=== PATIENT | male | born 1970 ===

== ENCOUNTER 2025-08-24 13:25 | Emergency (ER) | payer MEDICARE, MEDICAID, SELFPAY ==
--- NOTE | 2025-08-24 | ECG_ITS ---
Test Reason : TACHY Blood Pressure : */* mmHG Vent. Rate : 111 BPM Atrial Rate : 111 BPM P-R Int : 136 ms QRS Dur : 80 ms QT Int : 334 ms P-R-T Axes : 79 67 65 degrees QTcB Int : 454 ms Sinus tachycardia Possible Left atrial enlargement Borderline ECG When compared with ECG of 24-Aug-2025 13:30, No significant change was found Referred By: Adiel Stenier Electronically Signed By: PEPE EDEN
--- NOTE | 2025-08-24 | ECG_ITS ---
Test Reason : CP Blood Pressure : */* mmHG Vent. Rate : 113 BPM Atrial Rate : 113 BPM P-R Int : 140 ms QRS Dur : 78 ms QT Int : 338 ms P-R-T Axes : 82 56 50 degrees QTcB Int : 463 ms Sinus tachycardia Possible Left atrial enlargement Borderline ECG No previous ECGs available Referred By: Generic ED Physician Electronically Signed By: PEPE EDEN
--- NOTE | ~2025-08-24 | XR_ITS ---
EXAMINATION: XR CHEST CLINICAL INFORMATION: Chest pain. COMPARISON: None available. TECHNIQUE: PA view of the chest was obtained. FINDINGS: The cardiac, hilar, and mediastinal contours are normal. The lungs are clear bilaterally. No pneumothorax or effusion. No focal osseous or soft tissue abnormality. XR/XR chest 1V IMPRESSION: Normal chest. Electronically signed by: David Carlson MD 08/24/2025 02:21 PM EDT
--- NOTE | ~2025-08-24 | CT_ITS ---
EXAMINATION: CT HEAD WITHOUT CONTRAST CLINICAL INFORMATION: headache COMPARISON: None available. TECHNIQUE: Contiguous axial imaging was performed from the skull base to vertex without intravenous administration of contrast. This CT examination was performed using dose optimization techniques as appropriate, variously including the following: *Automated exposure control *Adjustment of mA and/or kV according to patient size (this includes techniques or standardized protocols for targeted exams where dose is matched to indication/reason for exam; i.e. extremities or head) *Use of iterative reconstruction technique DLP: 683 mGy-cm FINDINGS: No acute intracranial hemorrhage mass effect, midline shift, hydrocephalus or herniation. Gómez-white matter differentiation is normal. Posterior cranial fossa contents demonstrated no gross hemorrhage or mass effect. Normal position of the cerebellar tonsils. Sellar/suprasellar region demonstrated no gross masses. No air-fluid levels in the paranasal sinuses. Tympanic cavities and mastoid cells are aerated. Pneumatized left petrous apex, congenital variant. CT/CT head/brain wo IV con IMPRESSION: No acute or structural brain abnormality by CT. Electronically signed by: Luis Santos MD 08/24/2025 03:27 PM EDT
--- NOTE | ~2025-08-24 | CT_ITS ---
CLINICAL HISTORY: fever CT abdomen and pelvis with contrast Comparison: None provided Findings: Mild atelectasis and motion of the imaged lung bases. Mild fat deposition of the liver. 4 mm low-density lesion in the dome of the liver is too small to characterize by imaging. Differential considerations include cysts and hemangioma in the absence of malignancy. Gallbladder is partly obscured and otherwise unremarkable. Adrenal glands and pancreas partly obscured and otherwise unremarkable in the CT with motion artifacts. Imaged CBD measures at the upper limits of normal. Multiple bilateral nephrolithiasis, left worse than right. Kidney stones measuring up to 5 mm at this time. No hydronephrosis. Small mesenteric and retroperitoneal lymph nodes are nonspecific and may be reactive. Fluid and multiple small-bowel loops is nonspecific and can be seen with enteritis. No small bowel obstruction at this time. Small appendicolith present in the imaged appendix, without findings of acute appendicitis. (imaged 36 of series 7). Severe stool burden present, including the cecum. Prostate gland measures 5.4 cm transverse. Calcified and noncalcified plaque include imaged aorta and its branches. Phleboliths noted in the pelvis. Mild wall thickening of the mildly distended urinary bladder is nonspecific by CT. Mild osseous pelvis deformities appear old/chronic. Exostosis of the left iliac wing is likely from previous trauma and/or healed fracture. Osteochondroma also considered laterally. Degenerative disc changes and facet arthropathy are multifocal including lower lumbar spine. IMPRESSION: 1. Nonobstructing bilateral nephrolithiasis. 2. Fluid in the small bowel loops nonspecific and can be seen with enteritis. No small bowel obstruction. 3. Severe stool burden. 4. Indeterminate lesion in the dome of the liver measures 4 mm. Recommend six-month follow-up to ensure stability and exclude any potential growth. 5. Deformity of the left iliac bone likely due to old healed fracture. This document has been electronically signed by: Kaveh Herrera MD on 08/25/2025 02:41:21
[2025-08-24 13:29] VITALS: BP 160/81; PULSE 108; RESP 20; TEMP 37; O2SAT 98; BMI 26.6
--- NOTE | 2025-08-24 13:39 | ED.GENADULT ---
HPI - General Adult General Chief complaint: General Medical Stated complaint: migraines, CP, L sided numbness, feels faint Time Seen by Provider: 08/24/25 17:11 Source: patient, RN notes reviewed and old records reviewed Mode of arrival: ambulatory Limitations: no limitations History of Present Illness ED Provider: Obdulia BARCENAS narrative: 54-year-old male past medical history significant for migraine headaches presents for evaluation of multiple complaints. His chief complaint today seems to be a right-sided headache. His headaches are consistent with his previous migraines with eye pressure, light sensitivity significant headache. He has been treated with sumatriptan with good relief his symptoms pain He reports his primary doctor has only been giving him short portions of sumatriptan about 9 tablets to lasting for a month and the patient currently has no sumatriptan at home Also complains of chest pain that started this morning when he woke up and some shortness of breath. He has a sore throat He has not had any fevers but does endorse some chills He reports his overall discomfort is 7/10. He has seen urology in the past and they offered him some injections for his headaches which she does not feel helped No other complaints at this time Related Data Previous Rx's ?Medication ?Instructions ?Recorded amoxicillin 875 mg-potassium 1 tab PO Q12H #14 tabs 08/25/25 clavulanate 125 mg tablet sumatriptan succinate 100 mg tablet 100 mg PO Q2-4H PRN migraine 08/25/25 headache 2 doses #20 tabs Allergies Allergy/AdvReac Type Severity Reaction Status Date / Time No Known Allergies Allergy Verified 08/24/25 13:38 Review of Systems Constitutional: Constitutional: Denies body ache(s), Denies chills, Denies fever(s), Denies frequent falls and Reports headache(s) Eyes: Eyes: Denies blurry vision and Reports photophobia ENT: Denies vertigo, Denies dizziness and Reports headache(s) Cardiovascular: Cardiovascular: Reports chest pain and Denies dyspnea on exertion Respiratory: Respiratory: Denies cough and Denies dyspnea on exertion Gastrointestinal: Gastrointestinal: Denies abdominal pain, Denies nausea and Denies vomiting Musculoskeletal: Musculoskeletal: Denies back pain Integumentary/Breasts: Skin/Breast: Denies rash Neurologic: Denies vertigo, Denies dizziness, Denies frequent falls and Reports headache(s) Psychiatric: Psychiatric: Reports anxiety Physical Exam ED Vital Signs: Vital Signs - 24 hr 08/24/25 13:29 08/24/25 17:07 08/24/25 20:12 Temperature 98.6 F 100.0 F Pulse Rate 108 H 110 H 121 H Respiratory Rate 20 18 20 Blood Pressure 160/81 H 156/91 H 145/85 H Pulse Oximetry 98 99 93 Oxygen Delivery Method Room Air Room Air Room Air 08/24/25 21:15 08/24/25 22:05 08/24/25 23:41 Temperature 103 F H 101.6 F H 100.3 F Pulse Rate 141 H 104 H Respiratory Rate 18 14 Blood Pressure 153/90 H 139/73 Pulse Oximetry 95 100 Oxygen Delivery Method Room Air Room Air 08/25/25 02:20 08/25/25 03:18 Temperature 98.4 F 98.4 F Pulse Rate 90 90 Respiratory Rate 18 18 Blood Pressure 141/84 H 141/84 H Pulse Oximetry 96 96 Oxygen Delivery Method Room Air Room Air BMI result Body Mass Index 26.6 Const General: healthy appearing, no acute distress, alert and awake Nutritional Appearance: well nourished Orientation/consciousness: patient oriented x3 HENMT Head: Yes normocephalic and Yes atraumatic Eyes Eyelids: Yes eyelids normal Conjunctivae: conjunctivae normal Sclerae: sclerae normal Corneas: corneas normal Pupils: Equal, round and reactive pupils present EOM: EOMs intact bilaterally Direct Ophthalmoscopy: photophobia Neck Neck: Yes full ROM Resp Effort & Inspection: normal respiratory effort, able to speak in complete sentences and not labored Cardio Rate: regular rate Rhythm: regular rhythm GI Inspection: No distended Palpation (GI): Soft to palpation, not firm, nontender, no guarding and not rigid Skin General skin exam: elasticity normal Neuro General: patient oriented x3 Cranial nerves: Yes CN's II-XII intact bilaterally, Yes Equal, round and reactive pupils present and Yes Bilaterally intact EOM present Cognition (Neuro): normal cognition Extrem Other: Moving all extremities well without any obvious deformities Course Course Course Narrative: RME: 54-year-old male presents to ED for left-sided chest pain tingling bilateral extremities and lightheadedness with headache. Patient has history of pneumothorax small TIAs. Presently NIH score is 0. Patient's main complaint is chest pain. Labs EKG chest x-ray ordered Reevaluation(s) Reevaluation #1: The patient had some delay in getting his sumatriptan from pharmacy. However he received a little over an hour ago. He is resting comfortably on my re-evaluation. Time: 20:48 Reevaluation #2: Patient's headache has improved and he was to be discharged but then on repeat vitals was found to have a fever of 103. I ordered blood cultures, lactic acid. Further examination does show abdominal tenderness in the right upper and lower quadrants. The patient reports he had some nausea this morning after eating and has a history of chronic pancreatic disease. He still has all of his abdominal organs. Plan for CT scan of the pelvis to evaluate for acute appendicitis or acute cholecystitis as source of infection. However I do feel that his symptoms are still likely viral as he is coughing, congested with a sore throat. He has mono negative. He has a rash in his neck this is consistent with previous episodes of eczema. He was able to flex as well as hyperextend his neck without any difficulty. He has no meningeal signs, I have a low suspicion for meningitis or encephalitis Time: 22:05 Reevaluation #3: The patient's symptoms including his headache resolved in his fever resolved. He believes that the sumatriptan helped his headache most which she has had in the past. I do suspect with his cough he still has a viral illness but his CT scan shows enteritis versus significant stool burden. I discussed treatment with him. We will prescribe Augmentin which would cover upper respiratory infection as well as colitis. We will prescribe sumatriptan for his headaches. He was given return precautions. I did discuss a possible lumbar puncture with him, I have a very low suspicion for meningitis and the patient would prefer not to have this procedure performed. I do feel it is appropriate to defer at this time as he has no neck pain, nuchal rigidity, no confusion, no white count, and a normal head CT. Time: 03:00 Medications Administered Discontinued Medications Generic Name Dose Route Start Last Admin Trade Name Enrriqueq PRN Reason Stop Dose Admin Acetaminophen 975 mg 08/24/25 21:08 08/24/25 21:46 Acetaminophen 325 Mg Tablet PO 08/24/25 21:09 975 mg ONCE ONE Administration Amoxicillin/Clavulanate Potassium 875 mg 08/25/25 03:01 08/25/25 03:13 Amoxicillin/Potassium Clav 875 Mg Tablet PO 08/25/25 03:02 875 mg ONCE ONE Administration Sodium Chloride 1,000 mls @ 999 mls/hr 08/24/25 21:15 08/24/25 23:38 Ns IV 08/24/25 22:15 Infused .Q1H1M JUDIE Infusion Ibuprofen 600 mg 08/25/25 03:01 08/25/25 03:13 Ibuprofen 600 Mg Tablet PO 08/25/25 03:02 600 mg ONCE ONE Administration Iohexol 85 ml 08/25/25 01:09 08/25/25 01:10 Iohexol 350 Mg/Ml 100 Ml Infus..Btl IV 08/25/25 01:10 85 ml ONCE ONE Administration Sumatriptan Succinate 100 mg 08/24/25 17:43 08/24/25 19:24 Sumatriptan Succinate 100 Mg Tablet PO 08/24/25 17:44 100 mg ONCE ONE Administration Sumatriptan Succinate 100 mg 08/24/25 21:54 08/24/25 22:09 Sumatriptan Succinate 100 Mg Tablet PO 08/24/25 21:55 100 mg ONCE ONE Administration Medical Decision Making Medical Decision Making [facility] Narrative: 54-year-old male presents for evaluation of a headache as well as chest pain. His symptoms worsened today. He has a history of chronic migraines in his feels similar. His neurologic exam is benign, NIH stroke score of 0. He did have a CT scan ordered in triage does not show any acute findings. The patient has a temperature of a 100.0?, he has no obvious infection but given his cough, chest x-ray was ordered which shows no pneumonia. He is negative for COVID influenza. I feel that acute sinusitis is less likely in his his symptoms just started yesterday. He has not had upper respiratory symptoms for a week. No rashes to suggest a skin infection. The patient's troponin is undetectable in his EKG is nonischemic, he rules out for ACS. I suspect he may have a viral condition in his contributing to his headache. We will treat his headache with sumatriptan and re-evaluate Differential Diagnosis Differential Diagnoses: The differential diagnosis associated with the presentation includes Viral syndrome Acute headache Tension headache Migraine headache COVID-19 Influenza Strep pharyngitis Lab Data [facility] Lab Attestation statement: I reviewed the patient's lab results. No leukocytosis or anemia. Normal platelet count. No significant electrolyte abnormalities warranting dimension. Troponin negative 08/24/25 13:55 08/24/25 13:55 Labs: Lab Results 08/24/25 08/24/25 08/24/25 Range/Units 13:55 17:14 18:00 WBC 4.8 (4.8-10.8) X10*3/uL RBC 5.15 (4.60-5.80) X10*6/uL Hgb 14.8 (14.0-18.0) g/dl Hct 42.6 (42.0-52.0) % MCV 82.7 (80.0-98.0) fL MCH 28.7 (27.0-33.0) pg MCHC 34.7 (31.0-36.0) g/dl RDW 13.2 (11.0-16.0) % Plt Count 239 (160-400) X10*3/uL MPV 9.4 (9.4-12.4) fL Immature Gran % (Auto) 0.2 (0.0-0.4) % Neut % (Auto) 51.4 (45-73) % Lymph % (Auto) 22.4 (20-40) % Yell % (Auto) 12.8 H (2-11) % Eos % (Auto) 12.4 H (0-4) % Baso % (Auto) 0.8 (0-2) % Lymph # (Auto) 1.1 L (1.2-4.9) X10*3/uL Yell # (Auto) 0.6 (0.1-1.2) X10*3/uL Eos # (Auto) 0.6 H (0.0-0.4) X10*3/uL Baso # (Auto) 0.0 (0.0-0.2) X10*3/uL Abs Immat Gran (auto) 0.01 (0.00-0.03) X10*3/uL Absolute Neuts (auto) 2.5 (2.0-8.3) x10*3/uL Absolute Nucleated RBC 0.000 (0.0-0.012) X10*3/uL Nucleated RBC % (auto) 0.0 (0.0-0.2) /100WBC PT 11.4 (10.9-12.4) SEC INR 1.0 (0.9-1.1) APTT 27.9 (26.7-34.1) SEC Sodium 139 (135-145) mmol/L Potassium 3.6 (3.3-5.1) mmol/L Chloride 108 (96-108) mmol/L Carbon Dioxide 25 (22-29) mmol/L Anion Gap 10 L (12-20) BUN 12 (9-16) mg/dL Creatinine 1.07 (0.5-1.4) mg/dL Estim Creat Clear Calc 72.0 Estimated GFR > 60 Random Glucose 92 (60-115) mg/dL Lactic Acid (0.5-2.0) mmol/L Calcium 9.2 (8.4-10.2) mg/dL Total Bilirubin 0.5 (0.0-1.0) mg/dL AST 21 (5-37) U/L ALT 14 (0-40) U/L Alkaline Phosphatase 63 (39-117) U/L Troponin I High Sens < 2.7 (<3.5-35.0) ng/L NT-Pro-B Natriuret Pep 61.6 (<300) pg/mL Total Protein 7.2 (6.5-8.0) g/dL Albumin 4.3 (3.5-5.0) g/dL Urine Color Urine Appearance Urine pH (5.0-9.0) Ur Specific [place] (1.005-1.025) Urine Protein (Neg-Trace) mg/dL Urine Glucose (UA) (Negative) mg/dL Urine Ketones (Negative) mg/dL Urine Blood (Negative) Urine Nitrite (Negative) Ur Leukocyte Esterase (Negative) Urine RBC (0-2) /HPF Urine WBC (0-5) /HPF Ur Squamous Epith Cells (0-2) /HPF Urine Bacteria (None Seen) Hyaline Casts (0-2) /LPF Respiratory Panel Moya Adenovirus (Rapid PCR) (Not Detect.) B.pert (TEM-PCR) (Not Detect.) B.parapertussis DNA PCR (Not Detect.) C. pneumoniae DNA (PCR) (Not Detect.) Coronavirus OC43 (PCR) (Not Detect.) Coronavirus HKU1 (PCR) (Not Detect.) Coronavirus 229E (PCR) (Not Detect.) COVID-19 (TREVA) Negative (Negative) COVID-19 Clin Com See Note Coronavirus NL63 (PCR) (Not Detect.) Monoscreen (Negative) Human Metapneumovir PCR (Not Detect.) Influenza Type A (GIOVANNI) Negative (Negative) Influenza A (RT-PCR) (Not Detect.) Influenza A (H1) PCR (Not Detect.) Influ A (H1/09) PCR (Not Detect.) Influenza A (H3) PCR (Not Detect.) Influenza Type B (GIOVANNI) Negative (Negative) Influenza B (RT-PCR) (Not Detect.) Influenza A & B Note See Note M. pneumoniae (PCR) (Not Detect.) Parainfluenza 1 (PCR) (Not Detect.) Parainfluenza 2 (PCR) (Not Detect.) Parainfluenza 3 (PCR) (Not Detect.) Parainfluenza 4 (PCR) (Not Detect.) RSV (PCR) (Not Detect.) Entero/Rhino (PCR) (Not Detect.) SARS-CoV-2 RNA (RT-PCR) (Not Detect.) S. pyogenes GrpA GIOVANNI Negative (Negative) 08/24/25 08/24/25 08/24/25 Range/Units 21:26 21:31 21:34 WBC (4.8-10.8) X10*3/uL RBC (4.60-5.80) X10*6/uL Hgb (14.0-18.0) g/dl Hct (42.0-52.0) % MCV (80.0-98.0) fL MCH (27.0-33.0) pg MCHC (31.0-36.0) g/dl RDW (11.0-16.0) % Plt Count (160-400) X10*3/uL MPV (9.4-12.4) fL Immature Gran % (Auto) (0.0-0.4) % Neut % (Auto) (45-73) % Lymph % (Auto) (20-40) % Yell % (Auto) (2-11) % Eos % (Auto) (0-4) % Baso % (Auto) (0-2) % Lymph # (Auto) (1.2-4.9) X10*3/uL Yell # (Auto) (0.1-1.2) X10*3/uL Eos # (Auto) (0.0-0.4) X10*3/uL Baso # (Auto) (0.0-0.2) X10*3/uL Abs Immat Gran (auto) (0.00-0.03) X10*3/uL Absolute Neuts (auto) (2.0-8.3) x10*3/uL Absolute Nucleated RBC (0.0-0.012) X10*3/uL Nucleated RBC % (auto) (0.0-0.2) /100WBC PT (10.9-12.4) SEC INR (0.9-1.1) APTT (26.7-34.1) SEC Sodium (135-145) mmol/L Potassium (3.3-5.1) mmol/L Chloride (96-108) mmol/L Carbon Dioxide (22-29) mmol/L Anion Gap (12-20) BUN (9-16) mg/dL Creatinine (0.5-1.4) mg/dL Estim Creat Clear Calc Estimated GFR Random Glucose (60-115) mg/dL Lactic Acid 1.1 (0.5-2.0) mmol/L Calcium (8.4-10.2) mg/dL Total Bilirubin (0.0-1.0) mg/dL AST (5-37) U/L ALT (0-40) U/L Alkaline Phosphatase (39-117) U/L Troponin I High Sens (<3.5-35.0) ng/L NT-Pro-B Natriuret Pep (<300) pg/mL Total Protein (6.5-8.0) g/dL Albumin (3.5-5.0) g/dL Urine Color Yellow Urine Appearance Clear Urine pH 6.0 (5.0-9.0) Ur Specific [place] 1.010 (1.005-1.025) Urine Protein Negative (Neg-Trace) mg/dL Urine Glucose (UA) Negative (Negative) mg/dL Urine Ketones Negative (Negative) mg/dL Urine Blood Trace H (Negative) Urine Nitrite Negative (Negative) Ur Leukocyte Esterase Negative (Negative) Urine RBC 0-2 (0-2) /HPF Urine WBC 0-5 (0-5) /HPF Ur Squamous Epith Cells 0-2 (0-2) /HPF Urine Bacteria None Seen (None Seen) Hyaline Casts 0-2 (0-2) /LPF Respiratory Panel Moya See Note Adenovirus (Rapid PCR) Not Detected (Not Detect.) B.pert (TEM-PCR) Not Detected (Not Detect.) B.parapertussis DNA PCR Not Detected (Not Detect.) C. pneumoniae DNA (PCR) Not Detected (Not Detect.) Coronavirus OC43 (PCR) Not Detected (Not Detect.) Coronavirus HKU1 (PCR) Not Detected (Not Detect.) Coronavirus 229E (PCR) Not Detected (Not Detect.) COVID-19 (TREVA) (Negative) COVID-19 Clin Com Coronavirus NL63 (PCR) Not Detected (Not Detect.) Monoscreen Negative (Negative) Human Metapneumovir PCR Not Detected (Not Detect.) Influenza Type A (GIOVANNI) (Negative) Influenza A (RT-PCR) Not Detected (Not Detect.) Influenza A (H1) PCR Not Detected (Not Detect.) Influ A (H1/09) PCR Not Detected (Not Detect.) Influenza A (H3) PCR Not Detected (Not Detect.) Influenza Type B (GIOVANNI) (Negative) Influenza B (RT-PCR) Not Detected (Not Detect.) Influenza A & B Note M. pneumoniae (PCR) Not Detected (Not Detect.) Parainfluenza 1 (PCR) Not Detected (Not Detect.) Parainfluenza 2 (PCR) Not Detected (Not Detect.) Parainfluenza 3 (PCR) Not Detected (Not Detect.) Parainfluenza 4 (PCR) Not Detected (Not Detect.) RSV (PCR) Not Detected (Not Detect.) Entero/Rhino (PCR) Detected A (Not Detect.) SARS-CoV-2 RNA (RT-PCR) Not Detected (Not Detect.) S. pyogenes GrpA GIOVANNI (Negative) Independent Interpretation I performed an independent interpretation of an: EKG (Sinus tachycardia rate of [address] segment elevation NV. Nondiagnostic EKG) and Plain X-Ray Interpretation: Agree with Radiology interpretation Radiology Impression Discussion of test interpretation with radiology: I have reviewed the radiologist's reading. Radiologist Impression: FINDINGS: No acute intracranial hemorrhage mass effect, midline shift, hydrocephalus or herniation. Gómez-white matter differentiation is normal. Posterior cranial fossa contents demonstrated no gross hemorrhage or mass effect. Normal position of the cerebellar tonsils. Sellar/suprasellar region demonstrated no gross masses. No air-fluid levels in the paranasal sinuses. Tympanic cavities and mastoid cells are aerated. Pneumatized left petrous apex, congenital variant. CT/CT head/brain wo IV con IMPRESSION: No acute or structural brain abnormality by CT. Electronically signed by: Luis Santos MD 08/24/2025 03:27 PM EDT RP FINDINGS: The cardiac, hilar, and mediastinal contours are normal. The lungs are clear bilaterally. No pneumothorax or effusion. No focal osseous or soft tissue abnormality. XR/XR chest 1V IMPRESSION: Normal chest. Electronically signed by: David Carlson MD 08/24/2025 02:21 PM EDT RP Discharge Plan Discharge Clinical Impression: Headache, migraine, Acute viral syndrome Patient Disposition: Home, Self-Care Instructions: Migraine Headache (ED) Additional Instructions: Your workup in the ER today was reassuring. I recommend that you follow up with your primary doctor and/or Neurology regarding your chronic headaches. You were treated with sumatriptan 100 mg as a 1 time dose in the ER Take ibuprofen and Tylenol as needed for fevers and headache. Take Augmentin for your upper respiratory infection. I recommend a stool softener such as MiraLax but I would be cautious with laxatives as this may cause persistent diarrhea due to your enteritis Return for new or worsening symptoms Prescriptions: New amoxicillin-pot clavulanate 875-125 mg tablet 1 tab PO Q12H Qty: 14 0RF sumatriptan succinate 100 mg tablet 100 mg PO Q2-4H PRN (Reason: migraine headache) Qty: 20 0RF Rx Instructions: do not exceed 2 doses per 24 hrs Interventions: ED Discharge Assessment Last Done: 08/25/25 03:18 Discharge Date/Time: 08/25/25 03:27 Print Language: Malay
[2025-08-24 14:02] LABS: MANUAL DIFF FLAG NO
[2025-08-24 14:04] LABS: Hematocrit 42.6 % (42.0-52.0); Hemoglobin 14.8 g/dl (14.0-18.0); Imm Gran Abs Auto 0.01 X10*3/uL (0.00-0.03); Imm Gran Pct Auto 0.2 % (0.0-0.4); Lymphocytes Absolute Auto 1.1 X10*3/uL (1.2-4.9); Mean Corpuscular HGB Conc 34.7 g/dl (31.0-36.0); Mean Corpuscular Hemoglobin 28.7 pg (27.0-33.0); Mean Corpuscular Volume 82.7 fL (80.0-98.0); NRBC Abs Auto 0.000 X10*3/uL (0.0-0.012); NRBC Pct Auto 0.0 /100WBC (0.0-0.2); Platelet Count 239 X10*3/uL (160-400); Red Blood Count 5.15 X10*6/uL (4.60-5.80); White Blood Count 4.8 X10*3/uL (4.8-10.8)
[2025-08-24 14:10] LABS: INTERNATIONAL NORM RATIO 1.0 (0.9-1.1); Prothrombin Time 11.4 SEC (10.9-12.4)
[2025-08-24 14:12] LABS: Partial Thromboplastin Time 27.9 SEC (26.7-34.1)
[2025-08-24 14:19] LABS: Alanine Aminotransferase 14 U/L (0-40); Albumin Level 4.3 g/dL (3.5-5.0); Alkaline Phosphatase 63 U/L (39-117); Anion Gap 10 (12-20); Aspartate Amino Transferase 21 U/L (5-37); Blood Urea Nitrogen 12 mg/dL (9-16); Calcium 9.2 mg/dL (8.4-10.2); Carbon Dioxide 25 mmol/L (22-29); Chloride 108 mmol/L (96-108); Creatinine Clr Calc Pharmacy 72.0; Estimated Glomerular Filt Rate > 60; Potassium 3.6 mmol/L (3.3-5.1); Sodium 139 mmol/L (135-145); Total Protein 7.2 g/dL (6.5-8.0)
[2025-08-24 14:26] LABS: NT Pro B Type Natriuretic Pept 61.6 pg/mL (<300); Troponin-I High Sensitivity < 2.7 ng/L (<3.5-35.0)
[2025-08-24 17:07] VITALS: BP 156/91; PULSE 110; RESP 18; TEMP 37.8; O2SAT 99
--- OUTSIDE RECORDS SUMMARY | 2025-08-24 17:32 | XMS_ITS | Clinical Summary ---
Author Organization [facility] Facility Address [address] [place] [id number] Care Team Providers Care Sedimentationist Name Role Phone Unavailable Primary Care Provider Unavailabl e Social History Tobacco Use Types Packs/Day Years Used Date Smoking Tobacco: Never Assessed Sex and Gender Information Value Date Recorded Sex Assigned at Not on file Legal Sex Male 11:01 AM EDT Gender Identity Not on file Sexual Orientation Not on file Plan of Treatment Health Maintenance Due Date Last Done Comments Hepatitis B Vaccine (1 of 3 - 19+ 3-dose series) 09/02 Colorectal Cancer Screening: Annual FOBT 2020 Colorectal Cancer Screening: Colonoscopy 2020 Colorectal Cancer Screening: Sigmoidoscopy 2020 Pneumococcal Vaccine: 50+ Years (1 of 1 - PCV) 021 Influenza Vaccine (#1) 2025 Insurance Medicare [place]
[2025-08-24 17:42] LABS: COVID-19 Test Negative (Negative); IDNOW Serial# 55D5AD1C; IDNOW Serial# 58CA691E; Influenza B2 Negative (Negative)
--- NOTE | 2025-08-24 17:59 | PC.NURSE ---
sumatriptan requested from pharmacy
[2025-08-24 18:15] LABS: IDNOW Serial# 55D5AD1C; Strep A Nucleic Acid Negative (Negative)
--- NOTE | 2025-08-24 19:03 | PC.NURSE ---
Contacted pharmacy, inquiring regarding delay in receiving ordered medication (Imitrex 100mg). Pharmacy department ([facility]) stated that someone will bring the medication to ED now. Medication to be administered upon receipt. Patient out of bed to bathroom without difficulty. Care ongoing by this RN & Deepali Garza LPN.
[2025-08-24 20:12] VITALS: BP 145/85; PULSE 121; RESP 20; O2SAT 93
[2025-08-24 21:15] VITALS: BP 153/90; PULSE 141; RESP 18; TEMP 39.4; O2SAT 95
--- NOTE | 2025-08-24 21:15 | PC.NURSE ---
this nurse entered exam room to reassess d/t report from PCT that pt was tachycardic at 121. Upon re- eval pt oral temp 103, pt bedside telemetry suggested pt may be in v-tach at a rate of 141. Provider notified, Repeat EKG obtained- reviewed: sinus tach at 119 b/p 153/90. 20g IV access established in L-FA, lactic and cultures obtained per orders. 1l NS bolus inititated Pt noted to be coughing and white/clear sputum, lungs CTA. Respiratory pathogen panel obtained- specimen to be processed on day shift per lab. Per pt- there is something on his pancreas that has been there for years he reports that when it was discovered he was told is was not malignant- and reports he was seen at [facility] for his care. HOWARD Gracia updated. care ongoing, call chauhan within reach
[2025-08-24 21:41] LABS: Appearance Urine Clear; Glucose Urine UA Negative (Negative); PH 6.0 (5.0-9.0); Specific Gravity - Urine 1.010 (1.005-1.025); UMIC TRIGGER UACC YES
[2025-08-24 22:05] VITALS: BP 139/73; PULSE 104; RESP 14; TEMP 38.7; O2SAT 100
[2025-08-24 23:41] VITALS: TEMP 37.9
[2025-08-25] MEDS: iohexoL 350 MG/ML 100 ML INFUS..BTL 85 ML IV (01:10)
[2025-08-25 02:20] VITALS: BP 141/84; PULSE 90; RESP 18; TEMP 36.9; O2SAT 96
[2025-08-25 03:18] VITALS: BP 141/84; PULSE 90; RESP 18; TEMP 36.9; O2SAT 96
[2025-08-25 08:39] LABS: Chlamydia pneumoniae PCR Not Detected (Not Detect.); Coronavirus 229E PCR Not Detected (Not Detect.); Coronavirus HKU1 PCR Not Detected (Not Detect.); Coronavirus NL63 PCR Not Detected (Not Detect.); Coronavirus OC43 PCR Not Detected (Not Detect.); RSV PCR Not Detected (Not Detect.); Rhino/Enterovirus PCR Detected (Not Detect.)
[2025-08-25 08:54] LABS: Influenza A H1 PCR Not Detected (Not Detect.); Influenza A H1-2009 PCR Not Detected (Not Detect.); Influenza A H3 PCR Not Detected (Not Detect.); SARS-CoV-2 PCR Not Detected (Not Detect.)
== END 2025-08-25 03:27 | disposition home or self-care (01) ==
PROVIDERS: Physician Assistant; Emergency Provider Emergency Medicine Emergency Medical Services
DX: G43.909 Migraine, unspecified, not intractable, without status migrainosus (principal); B34.9 Viral infection, unspecified; R10.22 Pelvic and perineal pain left side; R11.0 Nausea; R00.0 Tachycardia, unspecified; R07.89 Other chest pain; Z11.52 Encounter for screening for COVID-19; Z79.899 Other long term (current) drug therapy
CPT/HCPCS: 36415; 70450; 71045; 74177; 80053; 81001; 83605; 83880; 84484; 85025; 85610; 85730; 86308; 87040; 87502; 87633; 87635; 87651; 93005; 96360; 96361; 99285; Q9967

== ENCOUNTER → 2025-08-24 13:30 | Outpatient (BNV) | payer MEDICARE, MEDICAID, SELFPAY | PROVIDERS: Emergency Provider Emergency Medicine Emergency Medical Services; Visit Provider Internal Medicine | DX: R00.0 Tachycardia, unspecified (principal) | CPT/HCPCS: 93010 ==

== ENCOUNTER → 2025-08-24 13:40 | Outpatient (BNV) | payer MEDICARE, MEDICAID, SELFPAY | PROVIDERS: Visit Provider Radiology Diagnostic Radiology | DX: R51.9 Headache, unspecified (principal); R07.89 Other chest pain | CPT/HCPCS: 70450; 71045 ==

== ENCOUNTER → 2025-08-25 00:01 | Outpatient (BNV) | payer MEDICARE, MEDICAID, SELFPAY | PROVIDERS: Emergency Provider Emergency Medicine Emergency Medical Services; Visit Provider Radiology Neuroradiology | DX: N20.0 Calculus of kidney (principal) | CPT/HCPCS: 74177 ==